=== PATIENT | female | born 1970 | race Caucasian/White ===

== ENCOUNTER 2022-06-11 08:39 | Outpatient (CLI) | payer OTHER, SELFPAY ==
[2022-06-11 13:37] LABS: Albumin* 4.2 g/dL (3.3-5.0)
[2022-06-11 13:38] LABS: Chloride* 110 mmol/L (96-114); Potassium* 4.9 mmol/L (3.6-5.1); Sodium* 144 mmol/L (135-149)
[2022-06-11 13:39] LABS: Cholesterol* 197 mg/dL (90-199)
[2022-06-11 13:40] LABS: Alkaline Phosphatase* 89 U/L (40-150); Aspartate Amino Transferase* 22 U/L (12-35); Bilirubin Total* 0.7 mg/dL (0.1-1.5); Blood Urea Nitrogen* 21 mg/dL (7-30); Carbon Dioxide* 27 mmol/L (20-32); Creatinine* 0.9 mg/dL (0.5-1.5); Estimated Glomerular Filt Rate 76 ml/min; Glucose* 89 mg/dL (60-115); Total Protein* 6.9 g/dL (6.0-8.3)
[2022-06-11 13:41] LABS: Alanine Aminotransferase* 22 U/L (4-35); Calcium* 9.7 mg/dL (8.4-10.6); HDL Cholesterol* 39 mg/dL (>=50); LDL Cholesterol Calculated 126 mg/dL (<100); Triglycerides* 160 mg/dL (40-149)
== END 2022-06-11 08:40 | disposition home or self-care (01) ==
PROVIDERS: PCP Physician Assistant Medical; Visit Provider Physician Assistant Medical
DX: E78.5 Hyperlipidemia, unspecified (principal); I10 Essential (primary) hypertension; F41.9 Anxiety disorder, unspecified; E66.9 Obesity, unspecified
CPT/HCPCS: 80053; 80061; 84443

== ENCOUNTER 2022-07-09 12:19 | Outpatient (CLI) | payer OTHER, SELFPAY | END 2022-07-09 12:20 | disposition home or self-care (01) | LOC: OP CLINIC 12:20 | PROVIDERS: PCP Physician Assistant Medical; Visit Provider Surgery | DX: Z12.11 Encounter for screening for malignant neoplasm of colon (principal); K63.5 Polyp of colon; K57.30 Diverticulosis of large intestine without perforation or abscess without bleeding | CPT/HCPCS: 45385; 88305; 99153; J2250; J3010 ==

== ENCOUNTER 2023-04-24 08:28 | Outpatient (CLI) | payer OTHER, SELFPAY | END 2023-04-24 08:29 | disposition home or self-care (01) | PROVIDERS: PCP Physician Assistant Medical; Visit Provider Physician Assistant Medical | DX: E78.2 Mixed hyperlipidemia (principal); I10 Essential (primary) hypertension; R79.89 Other specified abnormal findings of blood chemistry | CPT/HCPCS: 80053; 80061; 82607; 82728; 84439; 84443 ==

== ENCOUNTER 2023-06-19 11:18 | Outpatient (CLI) | payer OTHER, SELFPAY | END 2023-06-19 11:19 | disposition home or self-care (01) | PROVIDERS: PCP Physician Assistant Medical; Visit Provider Family Medicine | DX: I10 Essential (primary) hypertension (principal); E78.5 Hyperlipidemia, unspecified; E05.90 Thyrotoxicosis, unspecified without thyrotoxic crisis or storm; E66.9 Obesity, unspecified; R74.8 Abnormal levels of other serum enzymes | CPT/HCPCS: 82607; 84443; 86376 ==